=== PATIENT | female | born 1960 | race Caucasian/White ===

== ENCOUNTER → 2016-11-09 | Outpatient (CLI) | payer OTHER | LOC: FIMAGING 07:49 | PROVIDERS: ATTEND Physician Assistant Medical | DX: R90.82 White matter disease, unspecified (principal) ==

== ENCOUNTER → 2016-12-22 | Outpatient (CLI) | payer OTHER | LOC: FIMAGING 14:04 | PROVIDERS: ATTEND Physician Assistant | DX: M85.80 Other specified disorders of bone density and structure, unspecified site (principal) | CPT/HCPCS: G0202 ==

== ENCOUNTER 2017-06-13 13:49 | Emergency (ER) | payer OTHER ==
--- NOTE | 2017-06-13 14:28 | EDPHY ---
H & P Smoking Status: Never smoked Time Seen by Provider: 06/13/17 14:14 HPI/ROS: CHIEF COMPLAINT: Migraine headache HISTORY OF PRESENT ILLNESS: The patient is a 57 y/o female complaining of 3 migraine headaches since yesterday. Around 14:00 yesterday, 24 hours ago, she went to a dark theater and she had a sudden onset of a throbbing severe headache. She had never experienced this sensation before. She took 5 ibuprofen for the pain and laid down; 20 minutes later the headache dissipated. Around 19:00 last night the headache fairly suddenly came on again. She then took 4 ibuprofen and sat down; the headache dissipated in 30 minutes. While working in bright lights today the headache returned and she notes that it felt like her "head was going to explode ". When the headache is at its strongest, she is unable to differentiate pain laterality. The headache has currently dissipated to a 5/10, although there is more pain on the right side. She takes Trazodone occasionally, but has taken it the last 2 nights, which is more frequent than usual. Denies history of migraine or extreme headaches, head or neck trauma, recent chiropractic manipulations, paresthesias or other pertinent symptoms. REVIEW OF SYSTEMS: Aside from elements discussed in the HPI, a comprehensive 10-point review of systems was reviewed and is negative. 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 (Claudia Shaffer) Physical Exam: General Appearance: Alert, pleasant, in a dark room Eyes: Pupils equal and round, no conjunctival pallor or injection, EOMI ENT, Mouth: Mucous membranes moist Neck: Normal inspection Respiratory: Lungs are clear to auscultation Cardiovascular: Regular rate and rhythm Gastrointestinal: Abdomen is soft and non- tender Neurological: Alert&oriented x3, cranial nerves II through XII intact, motor 5/ 5, sensory intact to light touch, normal gait Skin: Warm and dry, no rash Extremities: Nontender, no pedal edema Psychiatric: Mood and affect normal (Claudia Shaffer) Constitutional: Initial Vital Signs Temperature (C) 36.4 C 06/13/17 13:53 Heart Rate 65 10/09/17 13:53 Respiratory Rate 18 06/13/17 13:53 Blood Pressure 154/89 H 06/13/17 13:53 O2 Sat (%) 99 06/13/17 13:53 O2 Delivery Mode Room Air Allergies/Adverse Reactions: No Known Allergies Allergy (Unverified 05/18/13 14:52) Home Medications: Medication Instructions Recorded Antibiotic For Uti-Unknown 05/18/13 Hydrocodone/APAP 5/325 [[place] 1 - 2 each PO Q4-6PRN PRN #20 tab 06/13/17 5/325] Ibuprofen [Motrin] 800 mg PO Q8 #20 tab 06/13/17 traZODONE 50MG (*) 06/13/17 Medical Decision Making - Diagnostics Imaging: I viewed and interpreted images myself Procedures: Procedure: Lumbar puncture. Indication: Headache. After verbal informed consent from the patient explaining the risks including infection, bleeding, and neurologic damage, the patient was prepped and draped in the usual sterile fashion. The patient was given Fentanyl 50mcg IV. The back was anesthetized with 1% lidocaine with epinephrine. A 20 gauge spinal needle was easily introduced at the L3-L4 interspace. Approximately 4 cc of clear fluid was obtained in four separate vials. Opening pressure was not obtained. Spinal needle introducer was replaced before withdrawing needle. There were no complications. The procedure was performed by myself. (Nathan Anderson) ED Course/Re-evaluation: I took over care of this patient from Dr. Shaffer at shift change. My secondary assessment of this patient is in agreement of Dr. Shaffer. 1635: I spoke with Dr. Welch, radiology, regarding the results of the patient' s imaging. The imaging was not indicative of any cause of her symptoms. The next step is a lumbar puncture. I will reassess the patient and explain the options. 1713: I reassessed the patient and informed her of the results of her workup which was largely negative. I discussed with her the possibility of a lumbar puncture. I informed her of the advantages and the disadvantages of a lumbar puncture. She decided to have a spinal tap. She expressed concern of factor five clotting disorder. I explained that factor five is not likely a cause due to her history and imaging. She expressed that ibuprofen had helped her symptoms in the past. I will evaluate and decide on a medication for her headache and proceed with a lumbar puncture. 1802: I performed a lumbar puncture. It proceeded normally. To treat her headache I ordered 10 mg of Reglan while we wait for her results 1913: I reassessed the patient and informed her of the results of her lumbar puncture which was normal. I feel she is safe to go home. She feels comfortable with this course of action. (Nathan Anderson) The patient is a 57 y/o female presenting with a sudden onset of 3 severe headaches in the past 24 hours. These headaches last for around 30 minutes, and ibuprofen has provided some pain relief. Concern for subarachnoid hemorrhage, given sudden onset of headaches, without prior history of headaches. Neurologic exam is normal. CT/CTA of the head and neck ordered. The patient is aware that if these tests are normal, she will need to have a lumbar puncture. The patient was signed over to Dr. Anderson at shift change. The patient has not yet gone over for CT scan. (Claudia Shaffer) Differential Diagnosis: Headache including but not limited to subarachnoid hemorrhage, migraine headache , tension headache and infectious causes such as meningitis, pharyngitis and sinusitis. (Claudia Shaffer) - Data Points Laboratory Results: Laboratory Results 06/13/17 14:45 06/13/17 14:45 Microbiology Results: MICROBIOLOGY 06/13/17 18:05 Cerebral Spinal Fluid Gram Stain - Final Medications Given: Discontinued Medications Hydrocodone Bitart/Acetaminophen ([place] 5/325mg Prepack#6) 1 btl TAKEHOME EDNOW ONE Stop: 06/13/17 19:19 Last Admin: 06/13/17 19:41 Dose: 1 btl Fentanyl (Sublimaze) 50 mcg IVP EDNOW ONE Stop: 06/13/17 18:03 Last Admin: 06/13/17 18:04 Dose: 50 mcg Metoclopramide HCl (Reglan Injection) 10 mg IVP EDNOW ONE Stop: 06/13/17 18:18 Last Admin: 06/13/17 18:36 Dose: 10 mg Departure - Departure Disposition: Home, Routine, Self-Care Clinical Impression: Headache Qualifiers: Headache type: unspecified Headache chronicity pattern: acute headache Intractability: not intractable Qualified Code(s): R51 - Headache Condition: Good Instructions: Hydrocodone/Acetaminophen (By mouth), Acute Headache (ED) Additional Instructions: 1. Take medications as needed for headaches. 2. Follow up with Dr. Garcia, neurologist for recurrent symptoms. 3. Return to the ED for worsening of condition. Referrals: Mildred Ware PA [Primary Care Provider] - As per Instructions Prescriptions: Hydrocodone/APAP 5/325 [[place] 5/325] 1 - 2 each PO Q4-6PRN PRN #20 tab PRN Reason: Pain, Moderate Ibuprofen [Motrin] 800 mg PO Q8 #20 tab Report Scribed for: Claudia Shaffer Report Scribed by: Tenisha Avalos Date of Report: 06/13/17 Time of Report: 14:14 Physician Review and Approval Statement: 06/13/17 14:14 Portions of this note were transcribed by a biomedical service engineer. I personally performed a history, physical exam, medical decision making, and confirmed accuracy of information the transcribed note. (Claudia Shaffer)
[2017-06-13 15:01] LABS: % IMMATURE GRANULYOCYTES 0.6 % (0.0-1.1); ABSOLUTE IMMATURE GRANULOCYTES 0.04 10^3/uL (0.00-0.10); ADD DIFF? NO; ADD MORPH? NO; ADD SCAN? NO; ATYPICAL LYMPHOCYTE FLAG 0 (0-99); FRAGMENT RBC FLAG 0 (0-99); HEMOGLOBIN 14.1 g/dL (12.6-16.3); LEFT SHIFT FLG 0 (0-99); LIPEMIA HEMOLYSIS FLAG 90 (0-99); MEAN CELL HEMOGLOBIN 30.7 pg (27.9-34.1); MEAN CELL HEMOGLOBIN CONCENTR. 34.4 g/dL (32.4-36.7); MEAN CELL VOLUME 89.1 fL (81.5-99.8); MEAN PLATELET VOLUME 11.6 fL (8.7-11.7); PLATELET CLUMPS FLAG 0 (0-99); PLATELET COUNT 173 10^3/uL (150-400); RED CELL DISTRIBUTION WIDTH 12.1 % (11.5-15.2)
[2017-06-13 15:13] LABS: ANION GAP 12 mEq/L (8-16); CALCIUM 10.1 mg/dL (8.5-10.4); CARBON DIOXIDE 21 mEq/l (22-31); CHLORIDE 107 mEq/L (97-110); CREATININE 0.8 mg/dL (0.6-1.0); GLOMERULAR FILTRATION RATE > 60; GLUCOSE 103 mg/dL (70-100); POTASSIUM 3.5 mEq/L (3.5-5.2); SODIUM 140 mEq/L (134-144)
[2017-06-13] MEDS ORDERED: IOPAMIDOL (ISOVUE 370) 100 ML BTL IV ONE (15:32)
[2017-06-13] MEDS ORDERED: fentaNYL 100 MCG/2 ML INJ ONE (17:57)
[2017-06-13 18:01] VITALS: RESP 16; TEMP 98.4
[2017-06-13] MEDS ORDERED: fentaNYL 100 MCG/2 ML INJ IVP ONE (18:02)
[2017-06-13] MEDS ORDERED: METOCLOPRAMIDE 10 MG/2 ML VIAL IVP ONE (18:17)
[2017-06-13 18:37] LABS: PROTEIN, CSF 29 mg/dL (12-60)
[2017-06-13 18:39] LABS: CSF APPEARANCE CLEAR (CLEAR); CSF COLOR COLORLESS (COLORLESS); WBC, CSF 0 /mm3 (0-5)
[2017-06-13 18:46] LABS: CSF APPEARANCE SL. HAZY (CLEAR); CSF COLOR COLORLESS (COLORLESS); WBC, CSF 16 /mm3 (0-5)
[2017-06-13] MEDS ORDERED: HYDROCOD/APAP 5/325 PREPACK#6 BTL TAKEHOME ONE (19:18)
[2017-06-13 19:45] VITALS: BP 150/103; PULSE 57; O2SAT 95
== END 2017-06-13 19:44 | disposition home or self-care (01) ==
PROC: 009U3ZX Drainage of Spinal Canal, Percutaneous Approach, Diagnostic (ICD-10-PCS; principal; 2017-06-13)
DX: R51 Headache (principal)
CPT/HCPCS: 82947-QW; 96374; J2765; J3010; Q9967

== ENCOUNTER → 2018-03-07 | Outpatient (CLI) | payer OTHER | LOC: FIMAGING 14:47 | PROVIDERS: ATTEND Physician Assistant Medical | DX: S20.211A Contusion of right front wall of thorax, initial encounter (principal) ==